=== PATIENT | female | born 1965 | race Caucasian/White ===

== ENCOUNTER 2021-07-06 12:09 | Emergency (ER) | payer OTHER, SELFPAY ==
--- OUTSIDE RECORDS SUMMARY | 2021-07-06 12:12 | XMS REPORT | Continuity of Care Document ---
:1965 Author Organization [facility] t Address [address] [place] [address] Care Team Providers Name Role Phone Unavailable Unavailable Unavailable Problems This patient has no known problems. Allergies, Adverse Reactions, Alerts Allergy Allergy Status Severity Reaction(s) Onset Inactive Treating Comm ents Source Name Type Date Date Clinician Metoprol Adverse Active very sleepy [facility] Valsarta Adverse Active dry mouth [facility] Lisinopr Adverse Active cough [facility] Medications Ordered Filled Start Stop Current Ordering Indication Dosage Frequency Signature Comments Components Source Medication Medication Date Date Medication? Clinician (SIG) Name Name Carvedilol Carvedilol Yes Selena [address] [facility] [place] with food [facility] - [facility] Clinics Propranolol Propranolol Yes Selena [address] [facility] [address] HCl HCl [place] [facility] Amlodipine Amlodipine Yes Selena [address] [facility] [address] Besylate Besylate [place] [facility] Immunizations Ordered Filled Immunization Date Status Comments Sourc e Immunization Name Name Flucelvax - single Flucelvax - single 2019-04-[address] [facility] - dose syringe dose syringe 00:00:00 [facility] Procedures This patient has no known procedures. Encounters Start End Encounter Admission Attending Care Care Encounter Source Date/Time Date/Time Type Type Clinicians Facility Department ID 2020-07-21 2020-07-21 [facility] [id number] 2020-06-27 2020-06-27 [facility] [id number] [facility] 2020-05-20 2020-05-20 [facility] [id number] [facility] 2020-02-18 2020-02-18 [facility] [id number] 09:16:00 09:16:00 t [facility] Medicine Outpati ent Clinics 2019-11-09 2019-11-09 [facility] [id number] 10:53:00 10:53:00 t [facility] Medicine Outpati ent Clinics 2019-10-31 2019-10-31 [facility] [id number] 16:00:00 16:00:00 t [facility] Medicine Outpati ent Clinics 2019-07-13 2019-07-13 [facility] [id number] [address] 17:48:00 17:48:00 [facility] Medicine Outpati ent Clinics 2019-06-14 2019-06-14 [facility] [id number] [address] 15:20:00 15:20:00 t [facility] Medicine Outpati ent Clinics 2019-05-04 2019-05-04 [facility] [id number] 15:45:00 15:45:00 [facility] Medicine Outpati ent Clinics 2019-04-18 2019-04-18 [facility] [id number] 13:04:00 13:04:00 [facility] Medicine Outpat[facility] Clinics 2019-04-04 2019-04-04 [facility] [id number] [address] 15[facility]20:00 15:20:00 [facility] 2018-06-29 2018-06-29 [facility] [id number] 15:00[facility]00 15:00:00 [facility] Clin[facility] 2018-06-21 2018-06-21 [facility] [id number] [address] 15:00:00 15:00:00 [facility] Clinics 2018-01-06 2018-01-06 [facility] [id number] [address] 08:46:00 08:46:00 [facility] 2017-12-28 2017-12-28 [facility] [id number] 15:30:00 15:30:00 [facility] 2017-12-09 2017-12-09 [facility] [id number] 11:15:00 11:15:00 [facility] 2017-11-25 2017-11-25 [facility] [id number] 10:15:00 10:15:00 [facility] Results This patient has no known results.
[2021-07-06 14:11] LABS: SARS-COV-2 RT PCR NEGATIVE (NEGATIVE)
--- NOTE | 2021-07-06 14:30 | EDPHYS ---
Physician Documentation [facility] Name: Rima Padron Age: 55 yrs Sex: Female : 1965 Arrival Date: 07/06/2021 Time: 12:12 Bed 11 Private MD: Asad Llamas ED Physician Moiz Barton HPI: 07/06 18:52 This 55 yrs old Female presents to ER via Ambulatory with complaints of Fatigue,body kb aches,itching all over. 18:52 The patient or guardian reports flu symptoms, myalgias. Onset: The symptoms/episode kb began/occurred 2 day(s) ago. Severity of symptoms: At their worst the symptoms were mild, moderate, in the emergency department the symptoms are unchanged. Modifying factors: The symptoms are alleviated by nothing, the symptoms are aggravated by nothing. Associated signs and symptoms: The patient has no apparent associated signs or symptoms. The patient has not experienced similar symptoms in the past. The patient has not recently seen a physician. Pt reports bodyaches, fatigue and malaise for 2 days. States she developed an itchy rash to torso as well. 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 - Social history:: Smoking status: Patient denies any tobacco usage or history of. Patient uses alcohol, on a daily basis. bottle of wine daily. Last drink 07/04/2021. ROS: 17:08 Respiratory: Negative for shortness of breath, cough, wheezing, and pleuritic chest kb pain. 17:08 Constitutional: Positive for body aches, fatigue, malaise. 17:08 Skin: Positive for rash, of the anterior aspect of right lateral abdomen and anterior aspect of left lateral abdomen. 17:08 All other systems are negative. Exam: 18:52 Constitutional: This is a well developed, well nourished patient who is awake, alert, kb and in no acute distress. Head/Face: Normocephalic, atraumatic. ENT: Moist Mucous membranes Cardiovascular: Regular rate and rhythm with a normal S1 and S2. No gallops, murmurs, or rubs. No pulse deficits. Respiratory: Respirations even and unlabored. No increased work of breathing. Talking in full sentences MS/ Extremity: Pulses equal, no cyanosis. Neurovascular intact. Full, normal range of motion. Neuro: Awake and alert, GCS 15, oriented to person, place, time, and situation. Moves all extremities. Normal gait. Psych: Awake, alert, with orientation to person, place and time. Behavior, mood, and affect are within normal limits. 18:52 Skin: rash a mild rash is noted, consistent with contact dermatitis, on the anterior aspect of left lateral abdomen and anterior aspect of right lateral abdomen. Vital Signs: 12:34 BP 152 / 94; Pulse 67; Resp 18; Weight 79.83 kg; Height 5 ft. 4 in. (162.56 cm); ap3 12:39 Temp 98.1(O); ap3 14:53 BP 139 / 92; Pulse 62; Resp 17; Pulse Ox 98% ; ll1 12:34 Body Mass Index 30.21 (79.83 kg, 162.56 cm) ap3 MDM: 12:42 Patient medically screened. kb 17:08 Data reviewed: vital signs, nurses notes. Data interpreted: Pulse oximetry: on room air kb is 98 %. Interpretation: normal. Counseling: I had a detailed discussion with the patient and/or guardian regarding: the historical points, exam findings, and any diagnostic results supporting the discharge/admit diagnosis, lab results, the need for outpatient follow up, a family practitioner, to return to the emergency department if symptoms worsen or persist or if there are any questions or concerns that arise at home. 07/06 12:42 Order name: COVID-19/FLU A+B (Document "Date of Onset" if Symptomatic); Complete Time: kb 14:19 Administered Medications: 14:48 Drug: predniSONE 40 mg Route: PO; ll1 14:52 Follow up: Response: No adverse reaction ll1 14:48 Drug: Pepcid (famotidine) 20 mg Route: PO; ll1 14:52 Follow up: Response: No adverse reaction ll1 Disposition: 07/07 12:50 Co-signature as Attending Physician, Moiz Barton MD I agree with the assessment and vita plan of care. Disposition Summary: 07/06/21 14:29 Discharge Ordered Location: Home kb Condition: Stable kb Diagnosis - Acute upper respiratory infection, unspecified kb - Rash and other nonspecific skin eruption kb Followup: kb - With: Emergency Department - When: As needed - Reason: Worsening of condition Followup: kb - With: Private Physician - When: 2 - 3 days - Reason: Recheck today's complaints, Continuance of care, Re-evaluation by your physician Discharge Instructions: - Discharge Summary Sheet kb - Upper Respiratory Infection, Adult, [id number] kb - Rash, Adult, [id number] kb - Viral Respiratory Infection, [id number] kb Forms: - Medication Reconciliation Form kb - Thank You Letter kb - Antibiotic Education kb - Prescription Opioid Use kb - Work release form ll1 Prescriptions: - Pepcid 20 mg Oral Tablet - take 1 tablet by ORAL route every 12 hours for 5 days; 10 tablet; Refills: 0, kb Product Selection Permitted - Prednisone 20 mg Oral Tablet - take 1 tablet by ORAL route once daily for 5 days; 5 tablet; Refills: 0, kb Product Selection Permitted Signatures: Dispatcher [employer] EDGeovanna Marroquin, DIRECTOR HOME HEALTH-C DIRECTOR HOME HEALTH-Moiz Stokes MD MD cha Prokisch, Amanda, RN RN ap3 Soledad Morris RN RN ll1 Corrections: (The following items were deleted from the chart) 07/06 12:39 12:36 Social history: Smoking status: Patient denies any tobacco usage or history of. ap3 Patient uses alcohol, on a daily basis. ap3
--- NOTE | 2021-07-06 14:30 | ER ---
Nurse's Notes [facility] Name: Rima Padron Age: 55 yrs Sex: Female : 1965 Arrival Date: 07/06/2021 Time: 12:12 Bed 11 Private MD: Asad Llamas Diagnosis: Acute upper respiratory infection, unspecified;Rash and other nonspecific skin eruption Presentation: 07/06 12:34 Chief complaint: Patient states: she has been in bed for 2 days with muscle aches, head ap3 aches, runny nose and just doesn't' feel well. Patient denies being around anyone sick. Coronavirus screen: chills, congestion, fatigue, muscle pain, Client presents with at least one sign or symptom that may indicate coronavirus-19. Standard/surgical mask placed on the client. Provider contacted for isolation considerations. Ebola Screen: No symptoms or risks identified at this time. Initial Sepsis Screen: Does the patient meet any 2 criteria? No. Patient's initial sepsis screen is negative. Does the patient have a suspected source of infection? No. Patient's initial sepsis screen is negative. Risk Assessment: Do you want to hurt yourself or someone else? Patient reports no desire to harm self or others. Onset of symptoms was July 03, 2021. 12:34 Method Of Arrival: Ambulatory ap3 12:34 Acuity: LA NENA 4 ap3 Triage Assessment: 12:38 General: Appears uncomfortable, Behavior is calm, cooperative. Pain: Complains of pain ap3 in generalized body pain. EENT: Reports nasal congestion. Neuro: Level of Consciousness is awake, alert, obeys commands, Oriented to person, place, time, situation, Appropriate for age Speech is normal. Respiratory: Airway is patent Respiratory effort is even, unlabored, Respiratory pattern is regular, symmetrical. Musculoskeletal: Reports pain in generalized body pain. 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 - Social history:: Smoking status: Patient denies any tobacco usage or history of. Patient uses alcohol, on a daily basis. bottle of wine daily. Last drink 07/04/2021. Screenin:37 Abuse screen: Denies threats or abuse. Nutritional screening: No deficits noted. ap3 Tuberculosis screening: No symptoms or risk factors identified. Fall Risk Fall in past 12 months (25 points). No IV (0 pts). Ambulatory Aid- None/Bed Rest/Nurse Assist (0 pts). Gait- Weak (10 pts.). Mental Status- Oriented to own ability (0 pts). Assessment: 13:30 Reassessment: No changes from previously documented assessment. Patient and/or family ll1 updated on plan of care and expected duration. Pain level reassessed. Patient is alert, oriented x 3, equal unlabored respirations, skin warm/dry/pink. 14:30 Reassessment: No changes from previously documented assessment. Patient and/or family ll1 updated on plan of care and expected duration. Pain level reassessed. Patient is alert, oriented x 3, equal unlabored respirations, skin warm/dry/pink. Vital Signs: 12:34 BP 152 / 94; Pulse 67; Resp 18; Weight 79.83 kg; Height 5 ft. 4 in. (162.56 cm); ap3 12:39 Temp 98.1(O); ap3 14:53 BP 139 / 92; Pulse 62; Resp 17; Pulse Ox 98% ; ll1 12:34 Body Mass Index 30.21 (79.83 kg, 162.56 cm) ap3 ED Course: 12:12 Patient arrived in ED. mr 12:13 Asad Llamas MD is Private Physician. mr 12:36 Triage completed. ap3 12:39 Patient has correct armband on for positive identification. Adult w/ patient. Pulse ox ap3 on. NIBP on. 12:40 Arm band placed on right wrist. ap3 12:41 Geovanna Ayers FNP-C is PHCP. kb 12:41 Moiz Barton MD is Attending Physician. kb 12:41 Patient placed in an exam room, on a stretcher. ll1 12:59 Soledad Morris RN is Primary Nurse. ll1 14:54 No provider procedures requiring assistance completed. Patient did not have IV access ll1 during this emergency room visit. Administered Medications: 14:48 Drug: predniSONE 40 mg Route: PO; ll1 14:52 Follow up: Response: No adverse reaction ll1 14:48 Drug: Pepcid (famotidine) 20 mg Route: PO; ll1 14:52 Follow up: Response: No adverse reaction ll1 Outcome: 14:29 Discharge ordered by . melly 14:54 Discharged to home ambulatory. ll1 14:54 Condition: stable 14:54 Discharge instructions given to patient, Instructed on discharge instructions, follow up and referral plans. medication usage, Demonstrated understanding of instructions, follow-up care, medications, Prescriptions given X 2. 14:55 Patient left the ED. ll1 Signatures: Geovanna Ayers, LAMP WIRER-C LAMP WIRER-Susy RamirezaTammy mr Grisel Ren RN RN ap3 Soledad Morris RN RN ll1 Corrections: (The following items were deleted from the chart) 12:39 12:36 Social history: Smoking status: Patient denies any tobacco usage or history of. ap3 Patient uses alcohol, on a daily basis. ap3
[2021-07-06] MEDS ORDERED: FAMOTIDINE 20 MG TAB ONE (14:42)
[2021-07-06] MEDS ORDERED: predniSONE 20 MG TAB ONE (14:42)
[2021-07-06 15:08] VITALS: TEMP 98.1
[2021-07-06 15:18] VITALS: BP 139/92; O2SAT 98
== END 2021-07-06 14:55 | disposition home or self-care (01) ==
LOC: ER 12:09
DX: J06.9 Acute upper respiratory infection, unspecified (principal); R21 Rash and other nonspecific skin eruption; Z20.822 Contact with and (suspected) exposure to COVID-19; I10 Essential (primary) hypertension; F41.9 Anxiety disorder, unspecified
CPT/HCPCS: 0240U; 99283; J7512

== ENCOUNTER 2021-10-20 10:44 | Emergency (ER) | payer SELFPAY ==
--- OUTSIDE RECORDS SUMMARY | 2021-10-20 10:47 | XMS REPORT | Continuity of Care Document ---
:1965 Author Organization [facility] t Address [address] [place] [address] Care Team Providers Name Role Phone Burns Attending Clinician Unavailable Burns Admitting Clinician Unavailable Problems This patient has no known problems. Allergies, Adverse Reactions, Alerts Allergy Allergy Status Severity Reaction(s) Onset Inactive Treating Comm ents Source Name Type Date Date Clinician Metoprol Adverse Active very sleepy [facility] Valsarta Adverse Active dry mouth [facility] Reaction [facility] - [facility] ent [facility] Lisinopr Adverse Active cough [facility] Medications Ordered Filled Start Stop Current Ordering Indication Dosage Frequency Signature Comments Components Source Medication Medication Date Date Medication? Clinician (SIG) Name Name Carvedilol Carvedilol Yes Selena [address] [facility] 5-01 [place] with food [facility] - 00:[facility]: [facility] ent Clinics Propranolol Propranolol Yes Selena [address] HCl HCl [place] [facility] ent [facility] Amlodipine Amlodipine Yes Selena [address] Besylate Besylate Burns kes - [facility] ent [facility] Immunizations Ordered Filled Immunization Date Status Comments Sourc e Immunization Name Name Flucelvax - single Flucelvax - single 2019-04-[address] [facility] - dose syringe dose syringe 00:00:00 [place] [facility] Procedures This patient has no known procedures. Encounters Start End Encounter Admission Attending Care Care Encounter Source Date/Time Date/Time Type Type Clinicians Facility Department ID 2021-08-05 [facility] Selena [id number] [facility] 2021-08-05 Outpatient Ariela [facility] 12:17:43 Selena [id number] [facility] 2021-08-05 Outpatient Ariela [facility] 12:14:50 Selena [id number] [facility] 2021-08-05 Outpatient Ariela [facility] 11:03:11 Selena [id number] [facility] 2021-08-05 [facility] 10[facility] Selena [id number] [facility] 2020-07-21 2020-07-21 Outpatient [facility] [id number] [facility] 2020-06-27 2020-06-27 Outpatient [facility] [id number] [facility] 2020-05-20 2020-05-20 Outpatient [facility] [id number] [facility] 2020-02-18 2020-02-18 [facility] [id number] 09:16:00 09:16:00 [facility] Medicine l Medicine Outpati ent Clinics 2019-11-09 2019-11-09 [facility] [id number] 10:53:00 10:53:00 [facility] Medicine l Medicine Outpati ent Clinics 2019-10-31 2019-10-31 [facility] [id number] 16:00:00 16:00:00 [facility] Medicine l Medicine Outpati ent Clinics 2019-07-13 2019-07-13 [facility] [id number] 17:48:00 17:48:00 t [facility] Medicine Outpati ent Clinics 2019-06-14 2019-06-14 [facility] [id number] 15:20:00 15:20:00 t [facility] Medicine Outpati ent Clinics 2019-05-04 2019-05-04 [facility] [id number] 15:45:00 15:45:00 t [facility] Medicine Outpati ent Clinics 2019-04-18 2019-04-18 [facility] [id number] 13:04:00 13:04:00 t [facility] Medicine Outpati ent Clinics 2019-04-04 2019-04-04 [facility] [id number] 15:20:00 15:20:00 t [facility] Outpati ent Clinics 2018-06-29 2018-06-29 [facility] [id number] 15:00:00 15:00:00 [facility] Clin[facility] 2018-06-21 2018-06-21 [facility] [id number] 15:00:00 15:00:00 [facility] Clinics 2018-01-06 2018-01-06 [facility] [id number] 08:46:00 08:46:00 t [facility] Outpati ent Clinics 2017-12-28 2017-12-28 [facility] [id number] 15:30:00 15:30:00 t [facility] Medicine Outpati ent Clinics 2017-12-09 2017-12-09 [facility] [id number] 11:15:00 11:15:00 [facility] 2017-11-25 2017-11-25 Outpatient Poppy Ly [id number] [facility] 10:15:00 10:15:00 [facility] ent Clinics Results This patient has no known results.
[2021-10-20 11:21] LABS: Absolute Lymphocytes (CBC) 1.9 K/uL (0.7-4.9); Hematocrit 45.2 % (36.0-45.0); Lymphocytes % 40.1 % (15.3-44.8); MPV 9.7 fL (7.6-11.3)
[2021-10-20 11:40] LABS: Albumin 3.6 g/dL (3.4-5.0); Bilirubin Direct 0.2 mg/dL (0-0.2); Bilirubin Total 0.6 mg/dL (0.2-1.0); Potassium 3.3 mmol/L (3.5-5.1); Protein, Total 7.9 g/dL (6.4-8.2); Troponin High Sensitivity 3.5 pg/mL (<58.9)
[2021-10-20 11:49] LABS: Protime INR 0.95
--- NOTE | 2021-10-20 12:04 | RAD REPORT ---
EXAM DESCRIPTION: RAD - Chest Single View - 10/20/2021 12:00 pm CLINICAL HISTORY: CHEST PAIN COMPARISON: No comparisons FINDINGS: Lines: None. Lungs: No evidence of edema or pneumonia. Pleural: No significant pleural effusions or pneumothorax. Cardiac: The heart size is within normal limits. Bones: No acute fractures. Other: IMPRESSION: No acute cardiopulmonary disease.
[2021-10-20] MEDS ORDERED: LIDOCAINE VISCOUS 2% SOLN 15 ML UDC ONE (12:25)
[2021-10-20] MEDS ORDERED: MAGNES/ALUMIN/SIMET 30ML UCUP ONE (12:25)
--- NOTE | 2021-10-20 13:58 | ER ---
Nurse's Notes [facility] Name: Rima Padron Age: 56 yrs Sex: Female : 1965 Arrival Date: 10/20/2021 Time: 10:47 Bed 4 Private MD: Asad Llamas Diagnosis: Chest pain, unspecified Presentation: 10/20 10:55 Chief complaint: Patient states: she started having chest pain and pressure mid chest ap3 at approx 1030 this morning. Patient states she hasn't ever had this feeling before, and has just a touch of nausea with her chest pain. Coronavirus screen: At this time, the client does not indicate any symptoms associated with coronavirus-19. Ebola Screen: No symptoms or risks identified at this time. Initial Sepsis Screen: Does the patient meet any 2 criteria? No. Patient's initial sepsis screen is negative. Does the patient have a suspected source of infection? No. Patient's initial sepsis screen is negative. Risk Assessment: Do you want to hurt yourself or someone else? Patient reports no desire to harm self or others. Onset of symptoms was October 20, 2021 at 10:30. 10:55 Method Of Arrival: Wheelchair ap3 10:55 Acuity: LA NENA 3 ap3 Triage Assessment: 10:58 General: Appears uncomfortable, Behavior is calm, cooperative. Pain: Complains of pain ap3 in mid-sternal area Pain does not radiate. Pain currently is 2 out of 10 on a pain scale. Quality of pain is described as pressure, Pain began 30 min ago. Neuro: Level of Consciousness is awake, alert, obeys commands, Oriented to person, place, time, situation, Speech is normal. Cardiovascular: Reports chest pain, nausea, Patient's skin is warm and dry. Respiratory: Airway is patent Respiratory effort is even, unlabored. GI: Reports nausea. 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 - Social history:: Smoking status: Patient denies any tobacco usage or history of. Patient uses alcohol, occasionally. Screenin:59 Abuse screen: Denies threats or abuse. Nutritional screening: No deficits noted. ap3 Tuberculosis screening: No symptoms or risk factors identified. 11:23 Fall Risk IV access (20 points). Ambulatory Aid- None/Bed Rest/Nurse Assist (0 pts). jd3 Gait- Normal/Bed Rest/Wheelchair (0 pts) Mental Status- Oriented to own ability (0 pts). Total Dickey Fall Scale indicates No Risk (0-24 pts). Assessment: 11:22 General: Appears in no apparent distress. uncomfortable, Behavior is calm, cooperative, jd3 anxious. Pain: Complains of pain in chest Quality of pain is described as heavy, pressure. Neuro: Level of Consciousness is awake, alert, obeys commands, Oriented to person, place, time, situation. Cardiovascular: Heart tones present Capillary refill < 3 seconds Patient's skin is warm and dry. Rhythm is regular. Respiratory: Airway is patent Respiratory effort is even, unlabored, Respiratory pattern is regular, symmetrical, Breath sounds are clear bilaterally. Denies cough, shortness of breath. GI: No signs and/or symptoms were reported involving the gastrointestinal system. Patient currently denies diarrhea, nausea, vomiting. : No signs and/or symptoms were reported regarding the genitourinary system. EENT: No signs and/or symptoms were reported regarding the EENT system. Derm: Skin is intact, Skin is dry, Skin is normal, Skin temperature is warm. Musculoskeletal: Circulation, motion, and sensation intact. Range of motion: intact in all extremities. 12:15 Reassessment: Patient appears in no apparent distress at this time. Patient and/or jd3 family updated on plan of care and expected duration. Pain level reassessed. Patient is alert, oriented x 3, equal unlabored respirations, skin warm/dry/pink. 14:09 Reassessment: Patient appears in no apparent distress at this time. Patient and/or jd3 family updated on plan of care and expected duration. Pain level reassessed. Patient is alert, oriented x 3, equal unlabored respirations, skin warm/dry/pink. Patient states feeling better. Vital Signs: 10:55 BP 125 / 82; Pulse 74; Temp 98.4; Pulse Ox 100% ; Weight 79.38 kg; Height 5 ft. 4 in. ap3 (162.56 cm); Pain 2/10; 12:15 BP 132 / 81; Pulse 64; Resp 17 S; Pulse Ox 100% on R/A; jd3 14:10 BP 135 / 82; Pulse 65; Resp 18 S; Pulse Ox 100% on R/A; jd3 10:55 Body Mass Index 30.04 (79.38 kg, 162.56 cm) ap3 ED Course: 10:47 Patient arrived in ED. am2 10:47 Asad Llamas MD is Private Physician. am2 10:57 Triage completed. ap3 10:59 EKG done, by ED staff. ap3 10:59 Patient maintains SpO2 saturation greater than 95% on room air. ap3 10:59 Arm band placed on left wrist. ap3 11:01 Timo Marc RN is Primary Nurse. jd3 11:04 Singh Gottlieb PA is PHCP. jmm 11:04 Moiz Barton MD is Attending Physician. jmm 11:16 Inserted saline lock: 20 gauge in right antecubital area, using aseptic technique. jd3 Blood collected. 11:23 Patient has correct armband on for positive identification. Placed in gown. Bed in low jd3 position. Call light in reach. Side rails up X 1. removable prosthodontist on. Pulse ox on. NIBP on. 12:01 XRAY Chest (1 view) In Process Unspecified. EDMS 13:57 Asad Llamas MD is Referral Physician. jm 14:09 No provider procedures requiring assistance completed. IV discontinued, intact, jd3 bleeding controlled, No redness/swelling at site. Pressure dressing applied. Administered Medications: 12:26 Drug: GI Cocktail without - (Maalox Suspension 30 ml, Lidocaine Liquid 2 % 15 jd3 ml) Route: PO; 13:20 Follow up: Response: No adverse reaction jd3 Outcome: 13:57 Discharge ordered by . [facility] 14:09 Discharged to home ambulatory, with family. jd3 14:09 Condition: stable 14:09 Discharge instructions given to patient, family, Instructed on discharge instructions, follow up and referral plans. Demonstrated understanding of instructions, follow-up care. 14:11 Patient left the ED. jd3 Signatures: Dispatcher [employer] EDMS Mickail, SinghRACHID medina Amanda am2 Timo Marc RN RN jd3 Grisel Ren RN RN ap3 Corrections: (The following items were deleted from the chart) 10: PMHx: Hypertensive disorder; ap3 ap3 10: PMHx: Anxiety; ap3 ap3
--- NOTE | 2021-10-20 13:58 | EDPHYS ---
Physician Documentation [facility] Name: Rima Padron Age: 56 yrs Sex: Female : 1965 Arrival Date: 10/20/2021 Time: 10:47 Bed 4 Private MD: Asad Llamas ED Physician Moiz Barton HPI: 10/20 11:06 This 56 yrs old Female presents to ER via Wheelchair with complaints of Chest Pressure, [facility] Blood Pressure Problem. 11:06 The patient or guardian reports chest pain that is located primarily in the substernal [facility] area. Onset: 1 hour(s) ago. The pain does not radiate. Associated signs and symptoms: Pertinent positives: shortness of breath. The chest pain is described as aching, a pressure. Duration: The patient or guardian reports a single episode, that is still ongoing. Modifying factors: The symptoms are alleviated by nothing. the symptoms are aggravated by nothing. This is a 56 year old female with a history of htn that presents to the ED with complaints of substernal chest pain beginning approx 1 hour prior to arrival. Patient denies history of CAD. Denies tobacco use. Symptoms occurred while standing. . 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 - Social history:: Smoking status: Patient denies any tobacco usage or history of. Patient uses alcohol, occasionally. ROS: 11:06 Constitutional: Negative for fever, chills, and weight loss. jmm 11:06 Cardiovascular: Positive for chest pain. 11:06 Respiratory: Positive for shortness of breath. 11:06 All other systems are negative. Exam: 11:06 Head/Face: atraumatic. Eyes: EOMI, no conjunctival erythema appreciated ENT: Moist jmm Mucus Membranes Neck: Trachea midline, Supple Chest/axilla: Normal chest wall appearance and motion. Cardiovascular: Regular rate and rhythm. No edema appreciated Respiratory: Normal respirations, no respiratory distress appreciated Abdomen/GI: Non distended, soft Back: Normal ROM Skin: General appearance color normal MS/ Extremity: Moves all extremities, no obvious deformities appreciated, no edema noted to the lower extremities Neuro: Awake and alert Psych: Behavior is normal, Mood is normal, Patient is cooperative and pleasant 11:06 Constitutional: The patient appears alert, awake, anxious, uncomfortable. Vital Signs: 10:55 BP 125 / 82; Pulse 74; Temp 98.4; Pulse Ox 100% ; Weight 79.38 kg; Height 5 ft. 4 in. ap3 (162.56 cm); Pain 2/10; 12:15 BP 132 / 81; Pulse 64; Resp 17 S; Pulse Ox 100% on R/A; jd3 14:10 BP 135 / 82; Pulse 65; Resp 18 S; Pulse Ox 100% on R/A; jd3 10:55 Body Mass Index 30.04 (79.38 kg, 162.56 cm) ap3 MDM: 11:14 Patient medically screened. vita 13:56 Data reviewed: vital signs, nurses notes. Counseling: I had a detailed discussion with [facility] the patient and/or guardian regarding: the historical points, exam findings, and any diagnostic results supporting the discharge/admit diagnosis, lab results, radiology results, the need for outpatient follow up, to return to the emergency department if symptoms worsen or persist or if there are any questions or concerns that arise at home. Refusal of service: The patient/guardian displays adequate decision making capability and despite a detailed discussion of alternatives, benefits, risks, and consequences refuses: Admission to the hospital for further work-up and treatment, repeat troponin. 13:57 ED course: Patient stated feeling much better. Pain resolved. Patient is attributing [facility] chest pain to anxiety. Patient declined admission due to risk factors, also declined repeat troponin. Will follow up with cardiology/pcp. Patient otherwise given strict return precautions. patient understood and agrees with the plan of care. . 10/20 11:06 Order name: Basic Metabolic Panel; Complete Time: 11:51 [facility] 10/20 11:06 Order name: CBC with Diff; Complete Time: 11: [facility] 10/20 11:06 Order name: LFT's; Complete Time: 11: [facility] 10/20 11:06 Order name: Magnesium; Complete Time: 11: [facility] 10/20 11:06 Order name: NT PRO-BNP; Complete Time: 11: [facility] 10/20 11:06 Order name: PT-INR; Complete Time: 11:54 [facility] 10/20 11:06 Order name: Troponin HS; Complete Time: 11:51 [facility] 10/20 11:06 Order name: XRAY Chest (1 view); Complete Time: 12:08 [facility] 10/20 11:06 Order name: EKG; Complete Time: 11:07 [facility] 10/20 11:06 Order name: Cardiac monitoring; Complete Time: 11:08 [facility] 10/20 11:06 Order name: EKG - Nurse/Tech; Complete Time: 11:08 [facility] 10/20 11:06 Order name: IV Saline Lock; Complete Time: 11:16 [facility] 10/20 11:06 Order name: Labs collected and sent; Complete Time: :16 [facility] 10/20 11:06 Order name: O2 Per Protocol; Complete Time: 11:08 [facility] 10/20 11:06 Order name: O2 Sat Monitoring; Complete Time: 11:08 [facility] Administered Medications: 12:26 Drug: GI Cocktail without - (Maalox Suspension 30 ml, Lidocaine Liquid 2 % 15 jd3 ml) Route: PO; 13:20 Follow up: Response: No adverse reaction jd3 Disposition Summary: 10/20/21 13:57 Discharge Ordered Location: Home [facility] Condition: Stable [facility] Diagnosis - Chest pain, unspecified [facility] Followup: [facility] - With: Asad Llamas MD - When: Tomorrow - Reason: Recheck today's complaints, Continuance of care, Re-evaluation by your physician Discharge Instructions: - Discharge Summary Sheet [facility] Forms: - Medication Reconciliation Form [facility] - Thank You Letter [facility] - Antibiotic Education [facility] - Prescription Opioid Use [facility] - Work release form jd3 Addendum: 10/22/2021 18:41 Co-signature as Attending Physician, Moiz Barton MD I agree with the assessment and c almodovar plan of care. Signatures: Dispatcher [employer] Moiz Rascon MD MD cha Mickail, Joel, PA PA jmm Davies, Jonathon RN RN jd3 Grisel Ren RN RN ap3 Corrections: (The following items were deleted from the chart) 10/20 10:58 10:57 PMHx: Hypertensive disorder; ap3 ap3 10:58 10:57 PMHx: Anxiety; ap3 ap3
[2021-10-20 18:28] VITALS: TEMP 98.4; O2SAT 100
[2021-10-20 18:31] VITALS: BP 135/82
--- NOTE | 2021-10-21 11:01 | EKG ---
Test Date: 2021-10-20 Test Time: 10:53:53 Management Tech: ALP MEASUREMENT RESULTS: Intervals: Rate: 76 ME: 170 QRSD: 80 QT: 422 QTc: 474 [place]: P: 49 ME: 170 QRS: -7 T: -7 INTERPRETIVE STATEMENTS: Normal sinus rhythm Cannot rule out Anterior infarct, age undetermined Abnormal ECG No previous ECG available for comparison Electronically Signed On 10-21-21 10:57:32 CDT by Mart Alvarez
== END 2021-10-20 14:11 | disposition home or self-care (01) ==
LOC: ER 10:44
DX: R07.9 Chest pain, unspecified (principal); F41.9 Anxiety disorder, unspecified; I10 Essential (primary) hypertension; I25.10 Atherosclerotic heart disease of native coronary artery without angina pectoris
CPT/HCPCS: 36415; 71045; 80048; 80076; 83735; 83880; 84484; 85025; 85610; 93005; 99285